=== PATIENT | male | born 1965 | race Caucasian/White ===

== ENCOUNTER 2017-04-05 05:28 | Inpatient (IN) | payer OTHER ==
[2017-04-05] VITALS (7 sets, daily range): BP systolic 105–197; BP diastolic 61–107
[~2017-04-05] VITALS: Ht 185.4 cm; Wt 151.4 kg
--- NOTE | ~2017-04-05 | S ---
[facility] [address] [place] [address] SURGICAL PATH RPT PROCEDURE Name: SANTOS VASQUES Room #: 446-P DIS IN M.R.#: [id number] Admission: 04/05/17 Date of : 61 Discharge: 04/06/17 Report #: [id number] Path Case #: [id number] PATHOLOGY REPORT COLLECTION DATE: 04/05/2017 RECEIVED DATE: 04/05/2017 SUBMITTING PHYS: Dr. Anya Anthony OTHER PHYS: Dr. Daniel Duff ADDENDUM REPORT (Order Date: 04/10/2017 11:47) ADDENDUM COMMENT: The immunoperoxidase stain for Helicobacter pylori is positive. (SHA:archana; 04/10/2017) Professional services performed by [facility] at [address] , [place] [address] Technical services performed by [employer] [facility] [employer] at [address] [place] [address], [address].[place] [address]. ELECTRONICALLY SIGNED BY: Oh Herrera M.D. DATE/TIME:04/10/2017 12:47 SPECIMEN(S) RECEIVED: A.Gastric sleeve * * * * * * * * * * * * FINAL DIAGNOSIS: Gastric biopsy "gastric sleeve", partial gastrectomy: - Oqlf-sp-adfcbspg chronic gastritis arising in the background of chronic reactive gastropathy. - The immunoperoxidase stains for Helicobacter pylori will be done on block A3 and an additional report will follow. (SHA:mml; 04/09/2017) PATHOLOGIST: Oh Herrera M.D. REPORT ELECTRONICALLY SIGNED BY: Oh Herrera M.D. DATE/TIME: 04/09/2017 12:55 * * * * * * * * * * * * GROSS PATHOLOGY: The specimen is received in formalin, labeled "Santos Vasques, gastric sleeve". Received is a partial gastrectomy specimen with a stapled margin of resection measuring 25.2 x 6.4 x 3.2 cm in greatest [address] [address] SURGICAL PATH RPT PROCEDURE Name: SANTOS VASQUES Room #: 446-[facility] IN M.R.#: [id number] Admission: 04/05/17 Date of : 61 Discharge: 04/06/17 Report #: [id number] Path Case #: [id number] dimensions. The serosal surface is pink-weinstein to pink-garrett, smooth to slightly wrinkled in appearance. Opening the specimen reveals a light weinstein, slightly cobblestoned-appearing mucosa with moderate architectural folding. No distinct nodules or lesions are noted grossly. The specimen is submitted representatively in cassettes A1 through A3. (CAA; 04/07/2017) CLINICAL HISTORY: Morbid obesity INITIAL CPT CODE(S): A; 58475, 70868 Professional services performed by [facility] at [facility] [place] [address] Technical services performed by [facility] at [address] [place] [address]., [address], [place] [address]. [facility] [address] [place] [address] PHONE: [phone] DIRECTOR: Keron Aguero M.D. * * * END OF REPORT * * *
[~2017-04-05 05:28] MED LIST: AMARYL2 MG PO; AMARYL4 MG PO; ASPIR 8181 MG PO; FARXIGA5 MG PO; LEVOTHYROXIN0.075 MG PO; LOPRESSOR100 M1 PO; MEDROL DOSPAK21 TA1 PO; METFORMIN HCL500 MG PO; TOUJEO SOL300 UNIT/1 SUBQ
[2017-04-05 09:34] LABS: HEMATOCRIT 39.1 % (42.0-52.0); HEMOGLOBIN 12.5 gm/dL (14.0-18.0)
[2017-04-05 09:42] LABS: CALCIUM 8.8 mg/dL (8.5-10.1); CREATININE 0.8 mg/dL (0.7-1.3); POTASSIUM 3.9 mmol/L (3.5-5.1)
[2017-04-06 00:45] VITALS: BP 151/90
[2017-04-06 03:35] VITALS: BP 129/74
[2017-04-06 06:23] LABS: HEMATOCRIT 39.5 % (42.0-52.0); HEMOGLOBIN 12.8 gm/dL (14.0-18.0); MCH 27.1 pg (26.0-34.0); MCHC 32.4 g/dL (28.0-37.0); MCV 83.5 fL (80.0-100.0); RBC 4.73 mil/uL (4.50-6.00); RDW 14.8 % (10.5-14.5); WBC 7.7 thou/uL (4.0-11.0)
[2017-04-06 06:39] LABS: CALCIUM 8.9 mg/dL (8.5-10.1); CREATININE 0.9 mg/dL (0.7-1.3); POTASSIUM 4.6 mmol/L (3.5-5.1)
[2017-04-06 07:55] VITALS: BP 146/93
[2017-04-06 09:44] VITALS: BP 146/93
[2017-04-06] MEDS ORDERED: HYDROCODONE-ACE15 ML PO (09:50)
== END 2017-04-06 12:00 | disposition home or self-care (01) | DRG 621 ==
LOC: OR 05:28 → TBA 05:28 → GI 08:32 → OR 13:41 → 5S 13:42 → 4S 13:42 → OR 14:08 → EDSTATUS 14:49 → OR 14:51 → 4S 04-06 03:40
PROVIDERS: Surgery
PROC: 0DJ08ZZ Inspection of Upper Intestinal Tract, Via Natural or Artificial Opening Endoscopic (ICD-10-PCS; principal; 2017-04-05)
PROC: 0DB64Z3 Excision of Stomach, Percutaneous Endoscopic Approach, Vertical (ICD-10-PCS; principal; 2017-04-05)
DX: E66.01 Morbid (severe) obesity due to excess calories (principal); G47.33 Obstructive sleep apnea (adult) (pediatric); E11.9 Type 2 diabetes mellitus without complications; I10 Essential (primary) hypertension; M54.5 Low back pain; K21.9 Gastro-esophageal reflux disease without esophagitis; M79.605 Pain in left leg; M79.604 Pain in right leg; Z68.41 Body mass index [BMI] 40.0-44.9, adult; Z79.4 Long term (current) use of insulin; Z79.84 Long term (current) use of oral hypoglycemic drugs; Z79.82 Long term (current) use of aspirin; Z79.899 Other long term (current) drug therapy
CPT/HCPCS: 10089; 50010; 50101; 50222; 50249; 50386; 50555; 50739; 50740; 50962; 51437; 52182; 52265; 53307; 53311; 54022; 54118; 55245; 56462; 56525; 56526; 57092; 62110; 62900; 70005

== ENCOUNTER → 2020-03-19 | Outpatient (CLI) | payer OTHER ==
[~2020-03-19] MED LIST changes: +HYDROCODONE-ACE15 ML PO
== END ==
LOC: CAT 03-15 12:27
PROVIDERS: ATTEND Internal Medicine Cardiovascular Disease
DX: Z13.6 Encounter for screening for cardiovascular disorders (principal); I25.10 Atherosclerotic heart disease of native coronary artery without angina pectoris; E78.00 Pure hypercholesterolemia, unspecified